=== PATIENT | female | born 1985 | race Caucasian/White ===

== ENCOUNTER 2017-01-12 10:18 | Emergency (ER) | payer MEDICAID ==
[~2017-01-12] VITALS: Ht 172.7 cm; Wt 84.0 kg
[2017-01-12 10:20] VITALS: BP 151/71; PULSE 84; RESP 15; TEMP 98.3; O2SAT 97
--- NOTE | 2017-01-12 10:36 | PD ---
HPI Chief Complaint: Injury Time Seen by Provider: 10:29 Travel History International Travel<30 days: No Contact w/Intl Traveler<30days: No Traveled to known affect area: No History of Present Illness HPI 31-year-old female presents to emergency Department with complaint of right great toe pain, swelling, bruising since Thursday morning after dropping a crock pot on her toe. Denies paresthesias, loss of sensation. Reports decreased range of motion of the toe. Is ambulatory on the affected extremity. Has been icing the toe and taken Tylenol for symptom management. Describes the pain as a pulsating sensation. Rates the pain 8/10. Pain is constant. Minimal reduction of pain with ice and Tylenol. Has no other medical complaints. No known allergies. No other modifying factors or associated signs and symptoms. PFSH Past Medical History ?: Unknown LMP: 12/26/2016 : 3 Para: 2 Social History Alcohol Use: Yes (occassionally) Tobacco Use: Yes (3 cigarettes/day ) Substance Use: No Allergies-Medications (Allergen,Severity, Reaction): Coded Allergies: No Known Allergies (Unverified , 01/12/17) Reported Meds & Prescriptions Reported Meds & Active Scripts Active No Active Prescriptions or Reported Medications Review of Systems Except as stated in HPI: all other systems reviewed are Neg Physical Exam Narrative GENERAL: Well-nourished, well-developed black female patient, in no acute distress SKIN: Warm and dry. HEAD: Atraumatic. Normocephalic. EYES: Pupils equal and round. No scleral icterus. No injection or drainage. ENT: Mucosa pink and moist. Airway patent. NECK: Trachea midline. CARDIOVASCULAR: Regular rate. RESPIRATORY: No accessory muscle use. GASTROINTESTINAL: Rounded. MUSCULOSKELETAL: Right great toe is edematous and with ecchymosis; sensory intact; no obvious deformity; subungual hematoma noted; no open areas noted. Right foot has tenderness on palpation just below the right great toe. The foot is without erythema, edema, ecchymosis. Right lower extremity supple and non-tense with 2+ pedal pulses and sensory intact. No obvious deformities. No clubbing. No cyanosis. No edema. NEUROLOGICAL: Awake and alert. Oriented 3. No obvious cranial nerve deficits. Motor grossly within normal limits. Normal speech. PSYCHIATRIC: Appropriate mood and affect; insight and judgment normal. Data Data Last Documented VS Vital Signs Date Time Temp Pulse Resp B/P (MAP) Pulse Ox O2 Delivery O2 Flow Rate FiO2 01/12/17 10:20 98.3 84 15 151/71 (97) 97 Orders Orders Foot, Complete ([id number]) (01/12/17 10:36) Ice/Cold Pack (01/12/17 10:36) Ibuprofen (Motrin) (01/12/17 10:45) Crutches (01/12/17 10:40) Shoe Post Op (01/12/17 ) Ed Discharge Order (01/12/17 11:41) MDM Medical Decision Making Medical Screen Exam Complete: Yes Emergency Medical Condition: Yes Medical Record Reviewed: Yes Differential Diagnosis Fracture, contusion, sprain Narrative Course 31-year-old female with right great toe injury. Ibuprofen administered in the ER. Patient has pain on palpation to the right first metatarsal region. Right foot x-ray ordered. 1134: Right foot x-ray concludes: Foot X-Ray 01/12/17 1036 Signed Impressions: Service Date/Time: Thursday, January 12, 2017 10:58 - CONCLUSION: No evidence of recent bony injury. Arthropathy about the distal 1st metatarsal head with irregular marginal erosion. Onel Cuba MD Crutches and postop shoe provider for support. Ibuprofen and lortab prescribed for home. Instructed patient to follow up with podiatry as needed. Instructed patient to follow up with primary care provider. Patient verbalizes understanding and agreement with treatment plan. Patient is medically cleared and stable for discharge. Discussed reasons to return to the emergency department. Patient agrees with treatment plan. The patients vital signs are stable and the patient is stable for outpatient follow-up and treatment. Patient discharged home, stable and in no acute distress. Diagnosis Primary Impression: Contusion of great toe Qualified Codes: S90.111A - Contusion of right great toe without damage to nail, initial encounter Referrals: Marketing Support Assistant Primary Care Physician Patient Instructions: Foot Contusion (ED), General Instructions Additional Instructions: Tylenol or ibuprofen as directed and as needed for pain and inflammation Rest, ice, compress, and elevate extremity to decrease pain and inflammation Crutches for support Avoid aggravating activity; increase activity as tolerated Follow-up with primary care provider Return to the emergency department immediately with worsening of symptoms Med/Other Pt SpecificInfo: Prescription(s) given Scripts Hydrocodone-Acetaminophen (Lortab) 5-325 Mg Tab 1 TAB PO Q4H Y for PAIN, #10 TAB 0 Refills Prov: Melissa Olguin 01/12/17 Ibuprofen (Ibuprofen) 800 Mg Tab 800 MG PO Q6HR Y for PAIN, #30 TAB 0 Refills Prov: Melissa Olguin 01/12/17 Disposition: 01 DISCHARGE HOME Condition: Stable Melissa Olguin Jan 12, 2017 10:35
[2017-01-12] MEDS ORDERED: IBUPROFEN 800 MG TAB PO ONE (10:45)
--- NOTE | 2017-01-12 11:15 | RADRPT ---
EXAM DATE/TIME: 01/12/2017 10:58 [facility] COMPARISON: No previous studies available for comparison. INDICATIONS : Right foot pain. Patient dropped a crock pot on her foot. Pain and swelling in her first digit. MEDICAL HISTORY : None. SURGICAL HISTORY : None. ENCOUNTER: Initial ACUITY: 3 days PAIN SCORE: 10/10 LOCATION: Right foot. FINDINGS: Three view examination of the right foot demonstrates no soft tissue swelling, dislocation, or fractu re. The tarsal bones appear intact. There is a marginal erosion arising from the distal medial met atarsal head.. The calcaneus is intact. Bony mineralization is normal. CONCLUSION: No evidence of recent bony injury. Arthropathy about the distal 1st metatarsal head with irregular m arginal erosion. Onel Cuba MD on January 12, 2017 at 11:13 Board Certified Radiologist. This report was verified electronically.
[2017-01-12] MEDS ORDERED: HYDR-3533 PO (11:42)
[2017-01-12] MEDS ORDERED: IBUP800T23 PO (11:42)
== END 2017-01-12 12:18 | disposition home or self-care (01) ==
LOC: NEPD 10:18
DX: S90.111A Contusion of right great toe without damage to nail, initial encounter (principal); F17.210 Nicotine dependence, cigarettes, uncomplicated; W20.8XXA Other cause of strike by thrown, projected or falling object, initial encounter
CPT/HCPCS: 73630; 99283; E0113; L3260